=== PATIENT | male | born 1950 | race Asian ===

== ENCOUNTER 2024-07-26 11:12 | Emergency (ER) | payer BC, OTHER ==
[2024-07-26 11:19] VITALS: BP 149/92; PULSE 71; RESP 18; TEMP 97.9; BMI 28.8
[2024-07-26] MEDS ORDERED: ACETAMINOPHEN 325 MG TABLET (FP) ONE (11:43)
[2024-07-26] MEDS: ACETAMINOPHEN 325 MG TABLET (FP) PO ONE (11:45)
== END 2024-07-26 13:21 | disposition home or self-care (01) ==
LOC: JER 11:12
DX: M54.2 Cervicalgia (principal); W10.9XXA Fall (on) (from) unspecified stairs and steps, initial encounter
CPT/HCPCS: 70450-TC; 70486-TC; 72125-TC; 99284-25